=== PATIENT | male | born 1985 | race Caucasian/White ===

== ENCOUNTER 2020-06-09 14:50 | Emergency (ER) | payer BC, SELFPAY ==
[2020-06-09] VITALS (18 sets, daily range): BP systolic 111–179; BP diastolic 74–109; PULSE 85–114; RESP 13–23; TEMP 36.9; O2SAT 95–100
--- NOTE | ~2020-06-09 | XR_ITS ---
EXAMINATION: XR chest 2V 06/09/2020 16:56 INDICATION: Left chest pain PROCEDURE: PA and lateral views of the chest COMPARISON: 04/23/2018 FINDINGS: The lungs are clear. The cardiomediastinal silhouette is within normal limits. There are no pleural effusions. There is no pneumothorax suspected. IMPRESSION: 1: NO ACUTE CARDIOPULMONARY DISEASE. Reviewed, dictated and finalized at location A. N CLEANER
--- NOTE | 2020-06-09 14:56 | ECG_ITS ---
Measurements Intervals [place] Rate: 125 P: 52 HI: 161 QRS: -5 QRSD: 101 T: 9 QT: 306 QTc: 441 Interpretive Statements SINUS TACHYCARDIA BORDERLINE T WAVE ABNORMALITY- INFERIOR LEADS ABNORMAL ECG Electronically Signed On 06-09-2020 20:14:21 [employer] SALES REPRESENTATIVE by Hieu Mcleod D.O.
[2020-06-09 15:23] LABS: Basophils Absolute Auto 0.1 K/mm3 (0.0-0.1); Basophils Percent Auto 0.7 % (0.2-1.2); Eosinophils Absolute Auto 0.1 K/mm3 (0-0.3); Eosinophils Percent Auto 1.9 % (0-4.4); Hematocrit 46.3 % (42.0-52.0); Hemoglobin 15.5 g/dL (14.0-18.0); Immature Granulocyte Absolute 0.03 K/mm3 (0.00-0.031); Immature Granulocyte Percent A 0.4 % (0-0.5); Lymphocytes Absolute Auto 2.23 K/mm3 (0.9-3.2); Lymphocytes Percent Auto 32.9 % (18.3-44.2); Mean Corpuscular HGB Conc 33.5 g/dl (32-36); Mean Corpuscular Hemoglobin 28.5 pg (26-34); Mean Corpuscular Volume 85.1 fl (80-100); Mean Platelet Volume 11.5 fl (7.4-10.4); Monocytes Absolute Auto 0.7 K/mm3 (0.1-0.6); Monocytes Percent Auto 9.9 % (2.6-8.5); Neutrophils Absolute Auto 3.7 K/mm3 (1.3-6.7); Neutrophils Percent Auto 54.2 % (45.5-73.1); Platelet Count Result 218 k/mm3 (150-375); Red Blood Count 5.44 M/mm3 (4.6-6.20); Red Cell Distribution Width 13.5 % (11.5-14.5); White Blood Count 6.8 K/mm3 (4.5-10.0)
[2020-06-09 15:34] LABS: Anion Gap 9 mmol/L (8-16); Blood Urea Nitrogen 13 mg/dL (9-20); Calcium 8.8 mg/dL (8.4-10.2); Carbon Dioxide 26 mmol/L (22-30); Chloride 101 mmol/L (98-107); Estimated CRCL calculation 135 ml/min; Estimated Glomerular Filt Rate > 60; Glucose 102 mg/dL (75-110); Potassium 3.8 mmol/L (3.4-5.0); Sodium 136 mmol/L (137-145)
[2020-06-09 15:35] LABS: INR 0.9; Partial Thromboplastin Time 26.9 SECONDS (22.3-36.8); Prothrombin Time 12.6 Seconds (11.1-14.7)
[2020-06-09 15:46] LABS: Troponin I < 0.012 ng/mL (0.000-0.034)
[2020-06-09] MEDS: ASPIRIN 81 MG CHEWABLE TABLET 324 MG PO (17:12)
--- NOTE | 2020-06-09 17:24 | ED.CHESTPAIN ---
HPI - Chest Pain General Chief Complaint: Chest Pain Stated Complaint: left cp Time Seen by Provider: 06/09/20 17:12 Source: patient Mode of arrival: ambulatory Limitations: no limitations History of Present Illness HPI narrative: This is a 35-year-old male that presents the emergency department for left-sided chest pain over the last 2 days. Reports his blood pressure has been elevated as well. Describes the pain as dull and achy. Reports he also had a headache. Reports he is feeling better now that his blood pressure is lower. He takes amlodipine daily for hypertension. Denies fever, cough, shortness of breath, or lower extremity edema. Related Data Allergies Allergy/AdvReac Type Severity Reaction Status Date / Time No Known Allergies Allergy Unknown Verified 06/09/20 16:55 Review of Systems Review of Systems: Narrative: CONSTITUTIONAL: Denies fever CARDIOVASCULAR: Reports chest pain. Denies edema. RESPIRATORY: Denies cough or dyspnea. All systems reviewed & are unremarkable except as noted in HPI and below PMFSH Past Medical History Medical History (Updated 06/09/20 @ 19:16 by Neda Prado PA-C) History of hypertension Family History Family History (System 01/31/20 @ 12:35 by Maria D Choi) Mother Diabetes mellitus Patient's mother is in good health Family history of cardiovascular disease Father Patient's father is in good health Family history of cardiovascular disease Father Patient's father is in good health Family history of heart disease in male family member before age 55 Mother Family history of diabetes mellitus in first degree relative Family history of heart disease in male family member before age 55 Social History Social History (System 01/31/20 @ 12:35 by Maria D Choi) Smoking status: Never smoker Second hand tobacco smoke exposure: No Alcohol intake: current Exam Narrative: Exam Narrative: GENERAL: Well-appearing, obese, and in no acute distress. HEAD: Normocephalic, atraumatic. EYES: EOMI. ENT: Mucous membranes moist. Oropharynx without tonsillar hypertrophy exudate or other lesions. NECK: Supple. No adenopathy or masses. CHEST: Clear to auscultation. No respiratory distress. No wheezes rales or rhonchi HEART: Regular rate and rhythm. No murmur heard. Normal peripheral pulses. EXTREMITIES: Normal range of motion. No edema. SKIN: Warm, dry, no rash. NEURO: No focal deficits. Alert and oriented x3. PSYCH: Normal mood and affect Course Vital Signs Vital signs: Vital Signs Temperature 98.5 F 06/09/20 14:58 Pulse Rate 114 H 06/09/20 14:58 Respiratory Rate 16 06/09/20 14:58 Blood Pressure 179/109 H 06/09/20 14:58 Pulse Oximetry 100 06/09/20 14:58 Temperature 98.5 F 06/09/20 14:58 Pulse Rate 85 06/09/20 18:46 Respiratory Rate 20 06/09/20 18:46 Blood Pressure 128/88 06/09/20 18:46 Pulse Oximetry 99 06/09/20 18:46 MDM - Chest Pain MDM Narrative Medical decision making narrative: Patient presents the emergency department for intermittent chest pains over the last couple of days. Reports his blood pressure medication was changed and is having trouble controlling his blood pressure. Blood pressure was elevated on arrival to 179/109. This normalized without intervention. Most recent blood pressure 128/88. Reports relief in his pain since his blood pressure has been controlled. Patient also tachycardic upon arrival, this normalized without intervention. Heart rate now in the 80s. CBC and metabolic panel without concerning findings. EKG is without concerning changes and baseline and 3-hour troponin are negative. Chest x-ray is without acute cardiopulmonary abnormalities. Patient's heart score is a 2. He is stable and felt appropriate for further outpatient evaluation. He was given warnings to return to the ER Lab Data Attestation: I reviewed the patient's lab results. Result diagrams: 06/09/20 15:07
[2020-06-09 18:41] LABS: Troponin I < 0.012 ng/mL (0.000-0.034)
== END 2020-06-09 19:43 | disposition home or self-care (01) ==
PROVIDERS: Emergency Provider Emergency Medicine; PCP Physician Assistant
DX: R07.9 Chest pain, unspecified (principal); I10 Essential (primary) hypertension; R00.0 Tachycardia, unspecified; R94.31 Abnormal electrocardiogram [ECG] [EKG]
CPT/HCPCS: 36415; 71046; 80048; 84484; 85025; 85610; 85730; 93005; 99284; A9270

== ENCOUNTER 2020-11-01 07:37 | Outpatient (CLI) | payer BC, SELFPAY ==
--- NOTE | ~2020-11-01 | US_ITS ---
EXAMINATION: US scrotum doppler EXAM DATE: 11/01/2020 08:10 INDICATION: N50.89 - Other specified disorders of the male genital organs. Right scrotal palpable abn ormality. TECHNIQUE: Multiple grayscale and Doppler images of the testicles and scrotum were obtained bilateral ly. There is no prior study for comparison. FINDINGS: Right testicle measures 3.7 x 2.2 x 2.3 cm and is morphologically normal. Low resistance Doppler danielle w confirmed. The epididymis is unremarkable. Small hydrocele. Left testicle measures 3.7 x 2.0 x 2.6 cm and is morphologically normal. Low resistance Doppler flow confirmed. The epididymis is unremarkable. There is no hydrocele or varicocele. IMPRESSION: 1. Small right hydrocele. 2. Normal testicular morphology. Reviewed, dictated and finalized at location A.
== END 2020-11-01 07:38 | disposition home or self-care (01) ==
PROVIDERS: PCP Physician Assistant; Visit Provider Physician Assistant
DX: N50.89 Other specified disorders of the male genital organs (principal); N43.3 Hydrocele, unspecified
CPT/HCPCS: 76870; 93976

== ENCOUNTER 2021-04-28 12:58 | Emergency (ER) | payer BC, SELFPAY ==
[2021-04-28] VITALS (7 sets, daily range): BP systolic 109–157; BP diastolic 73–99; PULSE 86–116; RESP 16–21; TEMP 35.2; O2SAT 95–99
--- NOTE | ~2021-04-28 | XR_ITS ---
EXAMINATION: XR chest 2V DATE: 04/28/2021 14:29 INDICATION: Mid chest pain TECHNIQUE: PA and lateral views of the chest are obtained. COMPARISON: 06/09/2020 FINDINGS: The lungs are free of acute opacities. There is no pleural effusion or pneumothorax. The ca rdiomediastinal silhouette is normal. The visualized bones and soft tissues are unremarkable. IMPRESSION: 1. No acute cardiopulmonary abnormality. Reviewed, dictated and finalized at location A. M TUNNEL FEEDER
--- NOTE | 2021-04-28 14:21 | ECG_ITS ---
Measurements Intervals [place] Rate: 118 P: 50 SD: 137 QRS: 4 QRSD: 107 T: 35 QT: 378 QTc: 531 Interpretive Statements SINUS TACHYCARDIA POSSIBLE LEFT ATRIAL ENLARGEMENT BORDERLINE T WAVE ABNORMALITY- INFERIOR LEADS ABNORMAL ECG Electronically Signed On 04-28-2021 14:46:49 RETAIL STOCK CLERK by Hieu Mcleod D.O.
--- NOTE | 2021-04-28 14:22 | ED.GENADULT ---
HPI - General Adult General Chief complaint: Arrhythmia/Palpitations Stated complaint: palpations Time Seen by Provider: 04/28/21 13:54 Source: patient Mode of arrival: ambulatory Limitations: no limitations History of Present Illness HPI narrative: Patient presents for evaluation of left-sided chest pain and palpitations. He states he has a history of ocular migraines and often times following these episodes he has elevated blood pressure. He is currently taking lisinopril 10mg daily with hctz 12.5mg daily. He states he typically has ocular migraines 1-2 times per year. These episodes usually last about an hour in duration. At times he has a dull headache associated with visual disturbance, where he sees floaters . He states he has been told by specialist in the past that blood pressure elevation during these episodes is fairly normal. He has a follow-up appointment with an director of clinical applications in a few weeks. His last ocular migraine was about 1 week ago. For the last 2 to 3 days he has experienced some intermittent left-sided chest pain. He feels like his blood pressure has been elevated. He checked his blood pressure yesterday with a reading of 120/85. The pain he mentions in the left side of his chest is intermittent, occurring 7-8 times per day, lasting seconds to minutes. He feels like his heart is racing when he rolls over in bed. He denies any cough or leg swelling. No personal or family history of VTE. Maternal history of COPD, CHF, diabetes, cardiomyopathy. He does not smoke or use illicit drugs. Reports increased stress recently related to family issues and his employment. 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 Related Data Allergies Allergy/AdvReac Type Severity Reaction Status Date / Time No Known Allergies Allergy Unknown Verified 04/28/21 14:41 Review of Systems Review of Systems: CONSTITUTIONAL: Denies fever, chills, or sweats. EYES: Denies visual changes, redness, or discharge. ENT: Denies rhinorrhea, congestion, sore throat, or otalgia. CARDIOVASCULAR: Reports chest pain and palpitations. Denies edema. RESPIRATORY: Denies cough or dyspnea. GASTROINTESTINAL: Denies abdominal pain, nausea, vomiting, or diarrhea. GENITOURINARY: Denies dysuria or hematuria. SKIN: Denies rash or itching. MUSCULOSKELETAL: Denies back pain, joint pain, or myalgia. NEUROLOGIC: Denies headache, numbness, dizziness, or weakness. PSYCHIATRIC: Denies anxiety or depression. 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) Surgical History Surgical History History of hernia repair Family History Family History Mother Diabetes mellitus Family history of cardiovascular disease Congestive heart failure COPD (chronic obstructive pulmonary disease) Cardiomyopathy Father Patient's father is in good health Family history of cardiovascular disease Father Patient's father is in good health Family history of heart disease in male family member before age 55 Mother Family history of diabetes mellitus in first degree relative Family history of heart disease in male family member before age 55 Social History Social History (Updated 04/28/21 @ 14:25 by VERA Reddy, ) Smoking status: Never smoker Second hand tobacco smoke exposure: No Alcohol intake: current Alcohol use details: Social Living arrangements: alone Gender identity (if verbalized by the patient): Male Spiritual care concerns: No Exam Narrative: GENERAL: Well-appearing, well-nourished, and in no acute distress. HEAD: Normocephalic, atraumatic. EYES: PERRLA and EOMI. ENT: Nares clear, no rhinorrhea or epistaxis. Mucous membranes moist. Or
[2021-04-28 14:48] LABS: Basophils Absolute Auto 0.1 K/mm3 (0.0-0.1); Basophils Percent Auto 1.1 % (0.2-1.2); Eosinophils Absolute Auto 0.1 K/mm3 (0-0.3); Eosinophils Percent Auto 1.3 % (0-4.4); Hematocrit 46.8 % (42.0-52.0); Hemoglobin 16.2 g/dL (14.0-18.0); Immature Granulocyte Absolute 0.01 K/mm3 (0.00-0.031); Immature Granulocyte Percent A 0.1 % (0-0.5); Lymphocytes Absolute Auto 1.73 K/mm3 (0.9-3.2); Lymphocytes Percent Auto 22.9 % (18.3-44.2); Mean Corpuscular HGB Conc 34.6 g/dl (32-36); Mean Corpuscular Hemoglobin 29.5 pg (26-34); Mean Corpuscular Volume 85.2 fl (80-100); Mean Platelet Volume 11.5 fl (7.4-10.4); Monocytes Absolute Auto 0.9 K/mm3 (0.1-0.6); Monocytes Percent Auto 11.2 % (2.6-8.5); Neutrophils Absolute Auto 4.8 K/mm3 (1.3-6.7); Neutrophils Percent Auto 63.4 % (45.5-73.1); Platelet Count Result 243 k/mm3 (150-375); Red Blood Count 5.49 M/mm3 (4.6-6.20); Red Cell Distribution Width 13.1 % (11.5-14.5); White Blood Count 7.6 K/mm3 (4.5-10.0)
[2021-04-28 14:55] LABS: Add Urine Microscopic? YES; Appearance Urine Clear (Clear); Bilirubin Urine Negative (Negative); Blood Urine Negative (Negative); Color Urine Yellow (Yellow); Glucose Urine UA 2+ mg/dL (Negative); Ketones Urine Negative (Negative); Leukocyte Esterase Ur Negative LEU/UL (Negative); Mucus Urine Rare /lpf; Nitrate Urine Negative (Negative); Protein Urine Negative (Negative); RBC Urine 0-2 /hpf (0-2); Specific Grav Ur 1.013 (1.001-1.035); Urobilinogen Urine Negative mg/dL (<2.0); WBC Urine 0-3 /hpf
[2021-04-28 14:58] LABS: Prothrombin Time 12.9 Seconds (11.1-14.7)
[2021-04-28 14:59] LABS: Alanine Aminotransferase 137 U/L (4-50); Albumin Level 4.9 g/dL (3.5-5.1); Alkaline Phosphatase 64 U/L (38-126); Anion Gap 12 mmol/L (8-16); Aspartate Amino Transferase 70 U/L (17-59); Bilirubin,Total 0.7 mg/dL (0.2-1.3); Blood Urea Nitrogen 18 mg/dL (9-20); Calcium 9.5 mg/dL (8.4-10.2); Carbon Dioxide 26 mmol/L (22-30); Chloride 97 mmol/L (98-107); Estimated CRCL calculation 116 ml/min; Estimated Glomerular Filt Rate > 60; Glucose 85 mg/dL (65-110); Magnesium 2.1 mg/dL (1.6-2.3); Potassium 3.6 mmol/L (3.4-5.0); Sodium 135 mmol/L (137-145)
[2021-04-28 15:02] LABS: D Dimer 0.39 ug/mL (<0.48)
[2021-04-28 15:10] LABS: Troponin I < 0.012 ng/mL (0.000-0.034)
[2021-04-28 15:18] LABS: Free T4 Free Thyroxine 1.28 ng/mL (0.78-2.19)
== END 2021-04-28 16:21 | disposition home or self-care (01) ==
PROVIDERS: Emergency Provider Nurse Practitioner; PCP Physician Assistant
DX: R00.2 Palpitations (principal); R07.9 Chest pain, unspecified; I10 Essential (primary) hypertension; Z86.69 Personal history of other diseases of the nervous system and sense organs
CPT/HCPCS: 36415; 71046; 80053; 81001; 83735; 84439; 84443; 84484; 85025; 85380; 85610; 85730; 93005; 99284